=== PATIENT | male | born 1975 | race Caucasian/White ===

== ENCOUNTER 2020-12-17 18:43 | Emergency (ER) | payer MEDICARE ==
[2020-12-17 20:06] LABS: HEMOGLOBIN 14.4 gm/dl (14.0-17.5); RED BLOOD COUNT 4.38 M/UL (4.20-5.50); WHITE BLOOD COUNT 5.8 K/UL (4.5-11.0)
[2020-12-17 20:44] LABS: BUN/CREATININE RATIO 15 (0-10)
[2020-12-19 09:14] LABS: HBSAG SCREEN Negative (Negative); HEP A AB, IGM Negative (Negative); HEP B CORE AB, IGM Negative (Negative); HEP C VIRUS AB 0.8 (0.0-0.9)
== END 2020-12-17 23:33 | disposition home or self-care (01) ==
LOC: ER1 18:43
PROVIDERS: Physician Assistant; Physician Assistant Medical
DX: B17.9 Acute viral hepatitis, unspecified (principal); F10.10 Alcohol abuse, uncomplicated; I10 Essential (primary) hypertension; F17.210 Nicotine dependence, cigarettes, uncomplicated; Z20.822 Contact with and (suspected) exposure to COVID-19
CPT/HCPCS: 71045; 72125; 80053; 80074; 80307; 81001; 82550; 82553; 83690; 84484; 85025; 85610; 99284; Q9967; U0002